=== PATIENT | male | born 1960 | race African-American/Black ===

== ENCOUNTER 2025-05-04 05:45 | Emergency (ER) | payer MEDICAID, OTHER ==
[~2025-05-04] VITALS: Ht 188 cm; Wt 75.0 kg
[2025-05-04 05:45] VITALS: BP 0/0; PULSE 0; RESP 0; TEMP 97.9; O2SAT 0
[2025-05-04] MEDS ORDERED: CALCIUM CHLOR(10%) 100MG/ML 10ML SYRINGE IV ONE (05:46)
[2025-05-04] MEDS ORDERED: EPINEPHrine HCL 1 MG/10 ML SYRG ONE (06:03)
--- NOTE | 2025-05-04 06:05 | ED.PDOC ---
CPR-HPI HPI Comments 65 year old male PMHx seizure, HTN,cancer presents to the ED via EMS with a chief complaint of cardiac arrest. Per EMS,911 was called due to patient experiencing walking-seizure, patient was initially post-ictal. In route to ED patient went into cardiac arrest, CPR began, IO was placed RLE, 4 rounds epinephrine was given. Total downtime prior to ED arrival is 20 minutes. Upon ED arrival, CPR continued, patient was intubated 8.0 ett, 27 cm at lip. BG was 125, temperature 97.9 F. Patient was given 6 rounds epinephrine, 3 bicarb, patient remained asystole. TOD 06:01. Time Seen by MD: 05:45 Reviewed Notes: Medications, Allergies Allergies: Coded Allergies: NO KNOWN ALLERGIES (Unverified , 05/04/25) Information Source: Emergency Med Personnel Mode of Arrival: EMS Timing: Minutes Duration: Total time prior hopital: (20 minutes) Onset: At rest Inital rhythm: Asystole Treatment: CPR, Epinephrine, Other (IO RLE) Response: No response Past Medical History PAST MEDICAL HISTORY: Cancer, HTN, Seizures Surgical History: Denies all surgeries Family History Family History: Reviewed,noncontributory to illness, No family hx of Cancer, No family hx of DM, No family hx of Heart phoebe, No family hx of HTN, No family hx ofKidney phoebe, No family hx of Liver phoebe, No family hx of Lung phoebe, No family hx of Stroke Social History Smoker: Unknown Alcohol: Unknown Drugs: Unknown Lives In: Home Unable to Obtain due to: Medical Urgency Physical Exam Exam Comments gravely ill appearing, CPR in progress General Appearance: No Apparent Distress, Normal HEENT: Head, Other (vomitus in mouth and airway) Neck: Full Range of Motion, Non-Tender, Normal, Normal Inspection Respiratory: Decreased Breath Sounds, Other (no spontaneous respirations) Cardiovascular: None, Other (pulseless, CPR in progress) Breast Exam: Deferred Gastrointestinal: Non Tender, Soft Genitalia: Deferred Pelvic: Deferred Rectal: Deferred Extremities: No calf tenderness, Normal capillary refill, Normal inspection, Normal range of motion, Non-tender, No pedal edema Musculoskeletal : Apperance: Normal Neurologic: None, Other (unresponsive) Cerebellar Function: Unable to Test Reflexes: Normal Skin: Dry, Normal Color, Warm Lymphatic: No Adenopathy Was a procedure done? Was a procedure done?: Yes Sedation Sedation?: No Informed consent obtained: No Intubation Indication: Respiratory Insufficiency Intubation Approach: Orotracheal (8.0) Intubation size: cm (27 lip) Informed consent obtained: No Risks/benefits/alt described: No Notes I observed, performed by resident Margie Differential Dx CPR Differential Diagnosis: Cardiopulmonary arrest, Cardiac Tamponade, Cardiogenic shock, Dysrhythmia, Electrolyte disorder, Heart Block, Myocardial Infarction, Pneumothorax, Pulmonary Embolus, Respiratory Failure, Ruptured Aortic Aneurysm, Other X-Ray, Labs, Meds, VS Vital Signs Date Time Temp Pulse Resp B/P (MAP) Pulse Ox O2 Delivery O2 Flow Rate FiO2 05/04/25 07:43 0 Mechanical Ventilator 0 05/04/25 05:45 97.9 0 0 0/0 0 97.9 Time of 1ST Reevaluation: 06:15 Reevaluation 1ST: Patient Education/Counseling: Other, Pt Unresponsive Family Education/Counseling: Diagnosis SEPSIS Sepsis Screen Vital Signs Date Time Temp Pulse Resp B/P (MAP) Pulse Ox O2 Delivery O2 Flow Rate FiO2 05/04/25 07:43 0 Mechanical Ventilator 0 05/04/25 05:45 97.9 0 0 0/0 0 97.9 Departure 1 Departure Time of Disposition: 06:01 Impression: Primary Impression: Cardiopulmonary arrest Additional Impression: Seizure disorder Disposition: 20 Condition: Other () Discharged With: Relative (Sibling) Comments CPR was continued in the emergency department. ACLS medications were given. Patient remained in asystole the entire time. Patient was intubated. Resuscitation efforts were unsuccessful. Patient was declared at 6:01 a.m.. Critical Care Note Critical Care Time?: Yes (35 min-critical care time only) Critical care comment: Total critical care time: Approximately 36 minutes Due to a high probability of clinically significant, life threatening deterioration, the patient required my highest level of preparedness to intervene emergently and I personally spent this critical care time directly and personally managing the patient. This critical care time included obtaining a history; examining the patient; pulse oximetry; ordering and review of studies; arranging urgent treatment with development of a management plan; evaluation of patient's response to treatment; frequent reassessment; and, discussions with other providers. This critical care time was performed to assess and manage the high probability of imminent, life-threatening deterioration that could result in multi-organ failure. It was exclusive of separately billable procedures and treating other patients. Heart Score Heart Score: Heart Score Response (Comments) Value History N/A 0 EKG N/A 0 Age N/A 0 Risk Factors N/A 0 Troponin N/A 0 Total 0 Stability Stability form required: No I personally scribed for FREDIS CHERRY MD ([email or web address]) on 05/04/25 at 06:05. Electronically submitted by Holli Hussein ([email or web address]). I personally scribed for FREDIS CHERRY MD ([email or web address]) on 05/04/25 at 06:07. Electronically submitted by Holli Hussein ([email or web address]). FREDIS CHERRY MD May 04, 2025 06:05
--- NOTE | 2025-05-04 06:15 | RESUS ---
CODE BLUE ASSESSSMENT History of Events History of Events: 65 year old male PMHx seizure, HTN,cancer presents to the ED via EMS with a chief complaint of cardiac arrest. Per EMS,911 was called due to patient experiencing walking-seizure, patient was initially post-ictal. In route to ED patient went into cardiac arrest, CPR began, IO was placed RLE, 4 rounds epinephrine was given. Total downtime prior to ED arrival is 20 minutes. Upon ED arrival, CPR continued, patient was intubated 8.0 ett, 27 cm at lip. BG was 125, temperature 97.9 F. Patient was given 6 rounds epinephrine, 3 bicarb, patient remained asystole. TOD 06:01. Initial Information Date: May 04, 2025 Time: 05:45 Location of Arrest: In Field CPR started initial time: 05:15 CPR started by whom: EMS Last seen well: 513 Pre-Hospital Care: ACLS Type of arrest: Cardiac, Respiratory, Adult, Witnessed Spontaneous Respirations: No Pulse Present: No Monitoring: ECG, Pulse Oximetry Crash Cart Opened and Supplies: Yes Airway Ventilation Breathing at Onset: Assisted Oxygen Delivery Method: Mechanical Ventilator Artificial Ventilation: Bag/Endo tube Intubation Size: 8.0 cuffed Intubated by: Margie Luu MD Intubation Attempts: 1 Intubated orally: Yes Tube secured at: 27 (@ lip) Confirmation: Auscultation Comments: confirmed via color change, breath sounds Circulation Circulation #1: Time: 05:45 Pulse Rate (adult): 0 Blood Pressure Systolic: 0 Blood Pressure Diastolic: 0 Circulation Comment: Code blue arrival Circulation #2: Time: 05:47 Pulse Rate (adult): 0 Blood Pressure Systolic: 0 Blood Pressure Diastolic: 0 Temperature (Fahrenheit): 97.9 (axillary) Circulation Comment: asystole Circulation #3: Time: 05:49 Pulse Rate (adult): 0 Blood Pressure Systolic: 0 Blood Pressure Diastolic: 0 Circulation Comment: asystole Circulation #4: Time: 05:51 Pulse Rate (adult): 0 Blood Pressure Systolic: 0 Blood Pressure Diastolic: 0 Circulation Comment: asystole Circulation #5: Time: 05:53 Pulse Rate (adult): 0 Blood Pressure Systolic: 0 Blood Pressure Diastolic: 0 Circulation Comment: asystole Circulation #6: Time: 05:55 Pulse Rate (adult): 0 Blood Pressure Systolic: 0 Blood Pressure Diastolic: 0 Circulation Comment: asystole Circulation #7: Time: 05:57 Pulse Rate (adult): 0 Blood Pressure Systolic: 0 Blood Pressure Diastolic: 0 Circulation Comment: asystole Circulation #8: Time: 05:59 Pulse Rate (adult): 0 Blood Pressure Systolic: 0 Blood Pressure Diastolic: 0 Circulation Comment: asystole Circulation #9: Time: 06:01 Pulse Rate (adult): 0 Blood Pressure Systolic: 0 Blood Pressure Diastolic: 0 Circulation Comment: TOD Procedure - IV Procedure - IV : IV Side: Right IV Location: Femoral IV Catheter Type: Peripheral IV IV Placed: In Hospital IV Placed by Miquel BUSH IV Gauge: 18 IV Line Care: Saline Flush Procedure - Intraosseous Site of Intraosseous: Tibia mp-medial Intraosseous inserted by: EMS Comment: Placed prior to arrival Medications & Response Medications and Responses #1: Medication Time: 05:46 ADULT Medications Given ADULT: Epinephrine 1 mg Route of Administration: IV Heart Rate: 0 EKG Rhythm: Asystole Blood Pressure Systolic: 0 Blood Pressure Diastolic: 0 EKG Rhythm: Asystole Medications and Responses #2: Medication Time: 05:49 ADULT Medications Given ADULT: Epinephrine 1 mg, Sodium Bacarbinate 50 meq Route of Administration: IV Heart Rate: 0 EKG Rhythm: Asystole Blood Pressure Systolic: 0 Blood Pressure Diastolic: 0 Respiratory Rate: 0 EKG Rhythm: Asystole Medications and Responses #3: Medication Time: 05:52 ADULT Medications Given ADULT: Epinephrine 1 mg, Sodium Bacarbinate 50 meq Route of Administration: IV Heart Rate: 0 EKG Rhythm: Asystole Blood Pressure Systolic: 0 Blood Pressure Diastolic: 0 EKG Rhythm: Asystole Medications and Responses #4: Medication Time: 05:52 ADULT Medications Given ADULT: Epinephrine 1 mg Route of Administration: IV EKG Rhythm: Asystole Blood Pressure Systolic: 0 Blood Pressure Diastolic: 0 EKG Rhythm: Asystole Medications and Responses #5: Medication Time: 05:55 ADULT Medications Given ADULT: Epinephrine 1 mg, Sodium Bacarbinate 50 meq, Magnesium Sulfate 1 gm, Calcium Chloride 10 mL Route of Administration: IV EKG Rhythm: Asystole EKG Rhythm: Asystole Medications and Responses #6: Medication Time: 05:58 ADULT Medications Given ADULT: Epinephrine 1 mg Route of Administration: IV EKG Rhythm: Asystole EKG Rhythm: Asystole Medications and Responses #7: Medication Time: 06:01 ADULT Medications Given ADULT: Epinephrine 1 mg, Sodium Bacarbinate 50 meq Route of Administration: IV EKG Rhythm: Asystole Blood Pressure Systolic: 0 Blood Pressure Diastolic: 0 Respiratory Rate: 0 EKG Rhythm: Asystole Nurses Notes [place] Coma Scale Eye Opening: None (1) [place] Coma Scale Verbal: None (1) [place] Coma Scale Motor: None (1) [place] Total: 3 Pupil Reaction: Non Reactive Bedside Blood Glucose: 125 EKG Rhythm: Asystole Time Code Ended Time Code Ended: 06:01 Post Arrest Status: Outcome of code: Unsuccessful Patient pronounced by: Dr. Margie Gonzales Time patient pronounced: 06:01 Family notified: Yes Code Team Present: Dr. Tate, Dr. Gonzales, Lorin guest service aide, Earl RN , Brice ERT, Dru ERT, Surinder RT, Sari PASTE UP ARTIST APPRENTICE, Mojgan RN HS Post Resuscitation Neurologica Pupil Size: 6 Comment: dilated, unresponsive MOJGAN DIAZ May 04, 2025 06:15
--- NOTE | 2025-05-04 08:13 | DVHNC2 ---
Intubation Indication: Respiratory Insufficiency, Altered Mental Status, Airway Protection Prep: No Preoxygenation Pretreated with: Nothing Medicated with: Nothing Intubation Approach: Orotracheal Intubation size: cm (8) Informed consent obtained: No Risks/benefits/alt described: No UTO Consent Patient arrived in cardiac arrest Notes Completed endotracheal intubation via direct laryngoscopy. Procedure supervised bu Dr Cherry Date of Service: May 04, 2025 Billing Provider: FREDIS CHERRY MD Common Visit Codes: PROCEDURE ONLY Procedure Codes: [id number] ZINA SIMS RESIDENT May 04, 2025 08:13
== END 2025-05-04 06:05 ==
LOC: ER 05:45 → EDBD 05:45 → EDUNIT# 05:45 → ER 06:05
DX: I46.9 Cardiac arrest, cause unspecified (principal); I10 Essential (primary) hypertension; G40.909 Epilepsy, unspecified, not intractable, without status epilepticus
CPT/HCPCS: 31500; 82947; 92950; 99285; J0169; J3475; 99291